=== PATIENT | female | born 2000 | race Caucasian/White ===

== ENCOUNTER → 2019-10-26 | Outpatient (CLI) | payer BC ==
--- NOTE | 2019-10-26 16:02 | Diagnostic Imaging Report ---
INDICATION: Left ankle pain. AP, oblique, and lateral views of the left ankle are obtained. No fracture or acute bony abnormality is seen. IMPRESSION: Negative left ankle. Dictated by: Dictated on workstation # [id number]
--- NOTE | 2019-10-26 16:03 | Diagnostic Imaging Report ---
INDICATION: Left foot pain. AP, oblique, and lateral views of the left foot are obtained. No fracture or acute bony abnormality is seen. IMPRESSION: Negative left foot. Dictated by: Dictated on workstation # [id number]
== END ==
LOC: RAD 14:46
PROVIDERS: ATTEND Internal Medicine
DX: S93.402A Sprain of unspecified ligament of left ankle, initial encounter (principal); M79.672 Pain in left foot
CPT/HCPCS: 73610; 73630